=== PATIENT | male | born 1980 | race African-American/Black ===

== ENCOUNTER 2018-04-20 11:53 | Inpatient (IN) | payer BC ==
[~2018-04-20] VITALS: Ht 180.3 cm; Wt 123.7 kg
--- NOTE | ~2018-04-20 | PATH ---
[facility] [place] [address] [address] PATHOLOGY RPT PROCEDURE Name: MARKUS SALINAS Room #: 214-P ADM IN M.R.#: [id number] Admission: 04/20/18 Date of : 80 Discharge: Report #: [id number] Path Case #: [id number] [facility] Accession Number: [id number] . 01 Material submitted: . LEFT LOWER LOBE LUNG BIOPSY . 01 Clinical history: . Bibasilar infiltrates . 02 Diagnosis: Lung, left lower lobe, wedge biopsy: - Organizing pneumonia. - Hyaline membranes and acute lung injury. - Capillaritis. [facility]/05/02/2018 . 02 Comment: Examination shows the entire lung parenchyma effaced by an organizing pneumonia along with several hyaline membranes, consistent with acute lung injury. In addition, there is capillaritis present. The medium-sized vessels present in the biopsy tissue are not involved. The organizing pneumonia shows rare scattered poorly-formed epithelioid histiocyte collections compatible with a poorly-formed granuloma. Acid fast bacillus and Gomori methenamine silver stains performed on block A1 are negative for mycobacterial as well as fungal elements, respectively. CMV immunohistochemical stain is reactive in a few cells showing nucleomegaly suggestive of CMV etiology. It is noted the CMV PCR is negative. HSV1 immunohistochemical stain is nonreactive. . This case is sent to [facility] for expert pulmonary pathologist opinion. An addendum will be issued subsequent to receiving their report. . The case was co-reviewed with Dr. Jamie Jeong (H and E slides only). . The findings are discussed with Dr. Jovan Aiken at 10:45 a.m. on 05/02/18. (IUV:mml; 05/02/18) . . *This test was developed and its performance characteristics determined by [facility]. It has not been cleared or approved by the U.S. Food and Drug Administration. The FDA has determined that such clearance or approval is not necessary. This test is used for clinical purposes. It should not be regarded as investigational or for research. This laboratory is certified under the Clinical Laboratory Improvement Amendments of 1988 (CLIA) as qualified to perform high complexity clinical laboratory testing. . [address] [address] PATHOLOGY RPT PROCEDURE Name: MARKUS SALINAS Room #: 214-P ADM IN M.R.#: [id number] Admission: 04/20/18 Date of : 80 Discharge: Report #: [id number] Path Case #: [id number] Addendum: . This addendum is issued subsequent to receiving the expert opinion from the pulmonary pathologist at [place], [place]. Dr. Avery Smiley reviewed the case and his diagnosis reads as follows: . Lung, left lower lobe, wedge biopsy: - Acute and organizing diffuse alveolar damage (see comment). . . ADDENDUM COMMENT: . At low magnification, sections of the lung biopsy show diffuse alveolar septal thickening due to a combination of fibroblast proliferation, edema and alveolar lining cell hyperplasia. Scattered eosinophilic hyaline membranes are also present. This constellation of findings is diagnostic of DAD. No eoniophils are identified. I also do not think that there is any evidence of capillaritis, vasculitis, giant cells or granulomas. There are some hyperchromatic cells with irregularly shaped nuclei which represent megakaryocytes. I do not see any viral cytopathic effect. Special stains for organisms, including immunohistochemistry for *CMV and *HSV, GMS and AFB are all negative. . DAD is a pattern of acute lung injury associated with various etiologies, including infections (example: Pneumocystis), noxious inhalants, drugs, septicemia and various forms of shock. It may also occur in association with most connective tissue diseases. When idiopathic, it is known as acute interstitial pneumonia or Bam-Rich disease. Unfortunately, this tends to behave a rapidly progressive form of interstitial lung disease. Management is primarily supportive. It is not possible to completely exclude an eosinophilic lung disease at this point in time as the patient has been on steroids. If he ever had peripheral eosinophilia or eosinophils on a BAL, then this could represent a partially treated acute eosinophilic pneumonia. . Overall, Dr. Smiley's findings are in agreement with ours. (IUV:issa; 05/04/2018) . *This test was developed and its performance characteristics determined by [facility]. It has not been cleared or approved by the U.S. Food and Drug Administration. The FDA has determined that such clearance or approval is not necessary. This test is used for clinical purposes. It should not be regarded as investigational or for research. This laboratory is certified under the Clinical Laboratory Improvement Amendments of 1988 (CLIA) as qualified to perform high complexity clinical laboratory testing. . Professional services performed by [address] [address]. Technical services performed by [address], [address], [place] [address]. [facility] [address] [place] [address] PATHOLOGY RPT PROCEDURE Name: MARKUS SALINAS Room #: 214-P ADM IN M.R.#: [id number] Admission: 04/20/18 Date of : 80 Discharge: Report #: [id number] Path Case #: [id number] QMS/05/04/2018 Addendum Electronically Signed by Tabby Gutierrez MD, Pathologist . 02 Electronically signed: . Tabby Gutierrez MD, Pathologist NPI- [id number] . 01 Gross description: . The specimen is received in formalin, labeled "Markus Salinas, left lower lobe lung biopsy". Received is a segment of pink-gonsalez lung tissue with a stable margin of resection measuring 2.8 x 2.0 x 0.5 cm in greatest dimensions. The shira are removed of the new margin is inked black. Sectioning reveals pink-milian, spongy cut surfaces with no grossly distinct nodules or lesions. The specimen is submitted entirely in cassettes A1 through A3. (CAA; 04/28/2018) QAC/QAC . 02 Pathologist provided ICD-10: J84.89, J98.4 . 02 CPT . 862763, L31792, X12834, 668855, 556595 Performed at: [address], [place], [place] [id number] MD Chip Arcos MD Phone: [phone] Performed at: [address] [id number] MD Tabby Gutierrez MD Phone: [phone]
--- NOTE | ~2018-04-20 | P ---
[facility] [place] [address] [address] [place] [address] PROCEDURE REPORT Name: MARKUS KRUSE Room #: 426- ADM IN M.R.#: [id number] Admission: 04/20/18 Attend Phys: George Neumann MD Discharge: Date of : 80 Report #: [id number] THIS REPORT FOR: //name// CC: George Watson MD DATE OF SERVICE: 04/21/2018 PROCEDURE: Fiberoptic bronchoscopy with bronchial lavage in the right lower lobe. INDICATION: Pulmonary infiltrates, failing outpatient therapy. ASA classification, class 3. PROCEDURE NOTATION: After discussing risks, benefits of planned procedure with the patient, he desired to proceed. After obtaining informed consent, he was brought to laboratory helper 3, was placed on continuous cardiopulmonary monitoring and supplemental oxygen. He was then given 4% lidocaine nebulized to anesthetize the upper respiratory tract. Once accomplished, he received conscious sedation, a total of 6 mg of Versed and 25 mcg of fentanyl were titrated during the procedure. Once accomplished, bronchoscope was passed through an oral biteblock until vocal cords were visualized. Lidocaine 1% was instilled in the vocal cords to provide topical anesthesia. Bronchoscope was then passed in the trachea, 1% lidocaine was instilled in the tracheobronchial tree bilaterally to provide topical anesthesia. Once complete, airways were surveyed. FINDINGS: Mainstem, lobar, segmental and subsegmental bronchi were all explored. No significant anatomic variation or disease existed. Some mild bronchial edema was noted. No significant secretions were seen. Because of the persistent infiltrates, bronchoscope was wedged into the right lower lobe where bronchial lavage was performed. This was sent for microbiologic and cytologic tests. The patient did have some hypoxemia near the end of procedure, required nonrebreather mask, but otherwise tolerated it well. IMPRESSION: Persistent pulmonary infiltrates, failing outpatient therapy. PLAN: Await microbiologic and cytologic tests. We will send for cell count with differential. <ELECTRONICALLY SIGNED> By: Clay Taylor MD 04/22/182005 1047 1834 Clay Taylor MD /nt
--- NOTE | ~2018-04-20 | HC ---
[facility] [place] [address] CONSULTATION Name: MARKUS KRUSE Room #: [facility]- ADM IN M.R.#: [id number] Admission: 04/20/18 Attend Phys: George Neumann MD Discharge: Date of : 80 Report #: [id number] THIS REPORT FOR: //name// CC: George Cagle DATE OF SERVICE: 04/21/2018 REASON FOR CONSULTATION: I was asked to evaluate concerning bilateral pulmonary infiltrates. HISTORY OF PRESENT ILLNESS: The patient was a 38-year-old, 2 months ago developed the onset of headache, right-sided, temporal region, behind his right eye. Serologic workup noted elevated sedimentation rate. Placed on a 10-day course of prednisone and improved with resolution of his headache. However, following this, he started having some discomfort in his throat with more shortness of breath, nonproductive cough. Then developed a low-grade fever without chills or sweats. He has had some anorexia. He has arthralgias and myalgias. Generalized fatigue. Denies any visual changes, mucosal lesions, odynophagia or dysphagia. He has had no rash or adenopathy. He is obese and has noticed some weight loss over the last 2 months. No pleuritic chest pain. His shortness of breath has progressed to the point where he had short of breath just sitting up in bed or talking. No cardiac history, hypertension or palpitations. No nausea, vomiting, diarrhea, dysuria or frequency. No blood in the stool or in his urine. No back or flank pain. Although he has arthralgias, he has had no joint swelling. No syncopal episodes, mood swings. He has been under stress with his home life. Initial workup thought possibly temporal arteritis. Therefore, the prednisone. This, however, was only a short course with a relatively quick taper. He has seen ENT with no specific diagnosis. He has had a stress echo, which was unremarkable. He had pulmonary evaluation as outpatient where a CT scan showed bilateral pulmonary infiltrates both interstitial and alveolar, predominantly mid chest and base region. He has had no HIV risk factors. He reports no travel outside the [place]. He grew up in [place]. No woodland, animal or tick exposure. REVIEW OF SYSTEMS: Ten point review negative other than described above. ALLERGIES: None. MEDICATIONS: He was given amoxicillin last week with no improvement. He is off his corticosteroids. He was started on azithromycin, ceftriaxone through the Emergency Room. PAST MEDICAL HISTORY: Otherwise, unremarkable. [facility] [address] [place] [address] CONSULTATION Name: [facility] Room #: [facility] IN ..#: [id number] Admission: 04/20/18 Attend Phys: George Neumann MD Discharge: Date of : 80 Report #: [id number] FAMILY HISTORY: Hypertension, otherwise unremarkable. SOCIAL HISTORY: He is a nonsmoker, no significant alcohol intake. No HIV risk factors. 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 PHYSICAL EXAMINATION: VITAL SIGNS: Maximum temperature is 100.9, hemodynamically stable. He underwent a bronchoscopy today. He is back from this. GENERAL: He is alert and cooperative. No acute distress when sitting up in bed. Any movement in bed or long bouts of discussion, he becomes short of breath. He is obese. EYES: Pupils were reactive, 3 mm. Sclerae white. No conjunctivitis. Sinuses nontender. MOUTH: Without lesion. Oral mucositis. NECK: Supple. No thyromegaly or mass. No peripheral adenopathy. SKIN: Without lesion or rash. LUNGS: Coarse crackles heard posteriorly mid chest and below. No consolidation or rub. HEART: Regular, without murmur, gallop or rub. He was tachycardic. ABDOMEN: Soft, nontender, no hepatosplenomegaly or mass. GENITOURINARY: External genitalia unremarkable. Perianal: Unremarkable. EXTREMITIES: No peripheral edema. No clubbing or cyanosis. NEUROLOGIC: Nonfocal. Mood was normal. Mental status, normal. LABORATORY STUDIES: Sodium 138, potassium 4.2, creatinine 1.1, AST 96, ALT 218, bilirubin normal, alkaline phosphatase 138. Hemoglobin 13.6, white count 17.8, platelet count was 342,000, 90% segs, 6% lymphs. CRP 156, sedimentation rate 95, rheumatoid factor positive at 15. DAPHNE, ANCA, IgE levels pending. Bronchoscopy showed no endobronchial lesions. No purulent secretions. CT scan of the chest as noted above with interstitial and alveolar infiltrates, mostly in the mid and lower lung dupont. No increased adenopathy. IMPRESSION: A 38-year-old with progressive pulmonary infiltrates associated with marked elevated sedimentation rate, leukocytosis, hepatitis and hypoxia. Cause of his pulmonary infiltrates would include infectious etiology, community acquired. He was on a short course of corticosteroids, which would make him at some increased risk. However, I am suspecting that this process was ongoing at least in part at the time of his steroids. Autoimmune or connective tissue disorder, sarcoidosis also considered. Malignancy seems less likely given no peripheral adenopathy and no adenopathy in his chest. I am suspecting the hepatitis is also related. RECOMMENDATION: We will check serologic studies, images head and sinuses. Await microbiology reports from his bronchoscopy. Given the rapid progression [facility] [address] [place] [address] CONSULTATION Name: MARKUS KRUSE Room #: 424-P ADM IN M.R.#: [id number] Admission: 04/20/18 Attend Phys: George Neumann MD Discharge: Date of : 80 Report #: [id number] of this process, I would agree with Pulmonary Medicine that lung biopsy may be in order here. This does not appear to be a typical bacterial infection. <ELECTRONICALLY SIGNED> By: Abhay Aiken MD 04/24/18 1214 1336 2156 Abhay Aiken MD /nt
--- NOTE | ~2018-04-20 | EKG ---
[place] [address] [facility] [place] [address] ELECTROCARDIOGRAM REPORT Name: MARKUS KRUSE Room #: 170-1 ADM IN M.R.#: [id number] Admission: 04/20/18 Attend Phys: George Neumann MD Discharge: Date of : 80 Report #: [id number] THIS REPORT FOR: //name// [facility] ED Test Date: 2018-04-20 Test Time: 12:22:12 Pat Name: MARKUS KRUSE Department: Room: 170 Gender: M Subpoena Server: JENNA : 1980 Requested By: Shasha Whyte Order Number: [id number] MD: Sanjeev Myrick Measurements Intervals Butler Rate: 100 P: 42 ND: 139 QRS: 82 QRSD: 98 T: -8 QT: 324 QTc: 418 Interpretive Statements Sinus tachycardia Borderline T abnormalities, inferior leads Poor R wave progression No previous ECG available for comparison Electronically Signed On 04-20-2018 16:54:19 CDT by Sanjeev Myrick [email or web address] <ELECTRONICALLY SIGNED> By: Sanjeev Myrick MD, [facility] 04/20/18 1654 1222 21 Sanjeev Myrick MD, FACC /EPI
--- NOTE | ~2018-04-20 | HC ---
[facility] [place] [address] CONSULTATION Name: MARKUS KRUSE Room #: 214-P ADM IN M.R.#: [id number] Admission: 04/20/18 Attend Phys: George Neumann MD Discharge: Date of : 80 Report #: [id number] THIS REPORT FOR: //name// CC: George Cagle DATE OF SERVICE: 05/03/2018 HISTORY OF PRESENT ILLNESS: The patient is a 38-year-old -[place] male who had a month long history of headache, was diagnosed for temporal arteritis, placed on prednisone, developed increased shortness of breath and ended being admitted to [facility] and noted to have bibasilar infiltrates. He underwent a left VATS wedge resection with lower lobe biopsy. He has had problems with acute hypoxemic respiratory failure, has been placed on high-dose steroids, Infectious Disease is involved, on IV antibiotics. He was on BiPAP. His oxygen needs have decreased. We are seeing him in Rehabilitation Medicine consultation. PAST MEDICAL HISTORY: Includes the above. History of temporal arteritis. Otherwise, no history of pulmonary or autoimmune diseases. ALLERGIES: No known drug allergies. HABITS: Occasional cigar. No history of alcohol abuse. SOCIAL HISTORY: Lives in a house alone. No steps. He indicated he actually just sold the house and so his plan currently is to move into a hotel for a month or so. He does have an out of town family that can assist. He works for the [employer]. REVIEW OF SYSTEMS: Did not offer any current complaints of chest pain. Some shortness of breath with limited activities. No abdominal discomfort. No focal extremity pain complaints. PHYSICAL EXAMINATION: GENERAL: A 38-year-old, overweight, -[place]ian male, in no obvious distress. VITAL SIGNS: Last recorded temperature is 98.5, pulse 88, respirations 26, blood pressure 119/76. NEUROLOGIC: He is alert, pleasant, oriented. He is on nasal prong O2, currently at 2 liters. Facies are symmetric. He is a good historian. Functional range of motion of both upper extremities without obvious focal weakness. DTRs are trace to 1. Lower extremities functional range of motion, strength is grade 4+ to 5-/5. DTRs are trace to 1. No calf swelling. No distal lower extremity edema. He was able to sit to stand for me independently, took a couple of steps in the room. [facility] [address] [place] [address] CONSULTATION Name: [facility] Room #: 214-P [facility] IN M.R.#: [id number] Admission: 04/20/18 Attend Phys: George Neumann MD Discharge: Date of : 80 Report #: [id number] EXTREMITIES: He has been going back and forth to the bathroom and per nursing notes is up ad naveen. ASSESSMENT: A 38-year-old -[place]ian male with the following problem list: 1. Acute hypoxemic respiratory failure, improving. 2. Bibasilar infiltrates. 3. Pneumonitis. 4. Prior history of temporal arteritis. 5. Generalized debilitation and weakness. PLAN: It appears he is going to be too high level to warrant an acute in-hospital inpatient rehabilitation stay. He is already up ad naveen. Physical therapy and occupational therapy will be evaluating him. We would anticipate he will be able to return directly home as he further medically stabilizes. We will continue to follow along for now. Thank you for asking us to assist in this patient's care. <ELECTRONICALLY SIGNED> By: Abiel Dawson MD 05/05/18 1025 1127 0025 Abiel Dawson MD /[facility]
--- NOTE | ~2018-04-20 | 2DMMODE ---
[facility] [address] [place] [address] 2 D/M-MODE ECHOCARDIOGRAM Name: MARKUS KRUSE Room #: 357-P ADM IN M.R.#: [id number] Admission: 04/20/18 Attend Phys: George Neumann MD Discharge: Date of : 80 Date of Service: 04/26/18 1626 Report #: [id number] THIS REPORT FOR: //name// APPROVED REPORT Study performed: 04/26/2018 13:37:02 EXAM: Limited 2D, Doppler, and color-flow Echocardiogram Patient Location: Echo lab Room #: [facility] Status: routine BSA: 2.48 HR: 100 bpm BP: 160/103 mmHg Rhythm: Tachycardia Other Information Study Quality: Adequate Indications Acute respiratory failure. Limited follow-up echo for change in EF, right heart size and function and pulmonary HTN. (Complete done 04/11/18) 2D Dimensions RVDd: 40.05 mm Aortic Valve AoV Peak Don.: 1.65 m/s AO Peak Gr.: 10.83 mmHg Tricuspid Valve TR Peak Don.: 3.23 m/s RAP Estimate: 10.00 mmHg TR Peak Gr.: 41.85 mmHg PA Pressure: 52.00 mmHg Left Ventricle The left ventricle is normal size. Mild concentric left ventricular hypertrophy. Left ventricular systolic function is normal. LVEF is 60-65%. Right Ventricle The right ventricle is normal size. The right ventricular systolic function is normal. [facility] [address] [place] [address] 2 D/M-MODE ECHOCARDIOGRAM Name: MARKUS KRUSE Room #: 357-P ADM IN M.R.#: [id number] Admission: 04/20/18 Attend Phys: George Neumann MD Discharge: Date of : 80 Date of Service: 04/26/18 1626 Report #: [id number] The left atrium size is normal. The right atrium size is normal. Aortic Valve The aortic valve is normal in structure. No aortic regurgitation is present. There is no aortic valvular stenosis. Mitral Valve The mitral valve is normal in structure. Trace mitral regurgitation. Tricuspid Valve The tricuspid valve is normal in structure. Moderate tricuspid regurgitation. Estimated PAP is 50-55mmHg. Great Vessels IVC is dilated and collapses around 50% with inspiration. Pericardium There is no pericardial effusion. <Conclusion> The left ventricle is normal size. LVEF is 60-65%. The right ventricle is normal size. The aortic valve is normal in structure. The mitral valve is normal in structure. Trace mitral regurgitation. The tricuspid valve is normal in structure. Moderate tricuspid regurgitation. Estimated PAP is 50-55mmHg. <ELECTRONICALLY SIGNED> By: Jarek Brown MD 04/26/18 1626 25 25 Jarek Brown MD /INF
--- NOTE | ~2018-04-20 | PATH ---
[facility] [address] [place] [address] PATHOLOGY RPT PROCEDURE Name: MARKUS KRUSE Room #: 424-P ADM IN M.R.#: [id number] Admission: 04/20/18 Date of : 80 Discharge: Report #: [id number] Path Case #: [id number] Note [facility] Accession Number: [id number] TESTS RESULT FLAG UNITS REF RANGE LAB Clinician Provided Cytology Information No. of containers..01 Other (Miscellaneous) Source: BAL- RLL DIAGNOSIS: 02 BAL- RLL NEGATIVE FOR MALIGNANT CELLS. NORMAL BRONCHIAL CELLS AND MACROPHAGES ARE PRESENT. SPECIMEN CONSISTS OF HEMOSIDERIN-LADEN MACROPHAGES AND BLOOD. Signed out by: Tabby Gutierrez MD, Pathologist NPI- [id number] Performed by: Zee Cabral, [employer] ([facility]) Gross description: 01 12ML, COLORLESS, CLEAR /LCS FLAG LEGEND: L-Low Normal,H-High Normal,LL-Alert Low,HH-Alert High <-Panic Low,>-Panic High,A-Abnormal,AA-Critical Abnormal Performed at: [address] [place] [address] Chip Arcos MD, [address] [address] Tabby Gutierrez MD, Performed at: [address], [place], [place] [id number] MD Chip Arcos MD Phone: [phone]
[2018-04-20 11:55] VITALS: BP 142/89
[2018-04-20] MEDS ORDERED: AMOXICILLIN 50500 MG PO (12:21)
[2018-04-20] MEDS ORDERED: TYLENOL325 MG PO (12:27)
[2018-04-20 12:40] LABS: CREATININE 1.4 mg/dL (0.7-1.3); HEMATOCRIT 43.9 % (42.0-52.0); HEMOGLOBIN 15.2 gm/dL (14.0-18.0); MCH 31.5 pg (26.0-34.0); MCHC 34.6 g/dL (28.0-37.0); MCV 91.2 fL (80.0-100.0); PLATELET COUNT 367 thou/uL (150-400); POTASSIUM 3.9 mmol/L (3.5-5.1); RBC 4.82 mil/uL (4.50-6.00); RDW 13.6 % (10.5-14.5); WBC 19.4 thou/uL (4.0-11.0)
[2018-04-20 16:13] LABS: ALBUMIN 2.8 g/dL (3.4-5.0); DIRECT BILIRUBIN 0.2 mg/dL (<0.1-0.3); TOTAL BILIRUBIN 0.5 mg/dL (<0.1-1.0); TOTAL PROTEIN 8.3 g/dL (6.4-8.2)
[2018-04-20 16:45] LABS: ABSOLUTE NEUTROPHILS 17.5 thou/uL (1.4-8.2)
[2018-04-20 16:46] LABS: LARGE PLATELETS MANY
[2018-04-20 19:44] VITALS: BP 136/88
[2018-04-20 21:00] VITALS: BP 129/84
[2018-04-20 23:49] VITALS: BP 136/85
[2018-04-21 04:31] VITALS: BP 136/84
[2018-04-21 06:07] LABS: HEMOGLOBIN 13.6 gm/dL (14.0-18.0); MCH 31.1 pg (26.0-34.0); MCHC 33.9 g/dL (28.0-37.0); MCV 91.8 fL (80.0-100.0); RBC 4.36 mil/uL (4.50-6.00); RDW 13.4 % (10.5-14.5); WBC 17.8 thou/uL (4.0-11.0)
[2018-04-21 06:14] LABS: CALCIUM 8.8 mg/dL (8.5-10.1); CREATININE 1.1 mg/dL (0.7-1.3); POTASSIUM 4.2 mmol/L (3.5-5.1)
[2018-04-21 07:49] VITALS: BP 134/7
[2018-04-21 09:58] VITALS: BP 134/7
[2018-04-21 11:28] VITALS: BP 136/78
[2018-04-21 11:55] LABS: CLARITY HAZY; COLOR COLORLESS; SOURCE BRONCHIAL LAVAGE; TOTAL VOLUME 15 mL
[2018-04-21 15:12] LABS: BF NUCLEATED CELLS 213; BF RBC 1780
[2018-04-21 15:56] LABS: BF MACROPHAGE 6
[2018-04-21 15:58] LABS: BF NEUTROPHILS 61
[2018-04-21 16:00] VITALS: BP 116/64
[2018-04-21 21:58] VITALS: BP 124/63
[2018-04-22 04:05] VITALS: BP 133/79
[2018-04-22 06:21] LABS: URINE BILIRUBIN NEGATIVE (Negative); URINE BLOOD NEGATIVE (Negative); URINE CLARITY CLEAR; URINE COLOR YELLOW; URINE GLUCOSE-RANDOM* NEGATIVE (Negative); URINE KETONES NEGATIVE (Negative); URINE LEUKOCYTES NEGATIVE (Negative); URINE NITRITE NEGATIVE (Negative); URINE PROTEIN (DIPSTICK) TRACE (Negative); URINE SPECIFIC GRAVITY 1.025 (1.005-1.035); URINE UROBILINOGEN 0.2 E.U./dl (0.2-1.0)
[2018-04-22 06:34] LABS: BE(vivo) -3.4 mmol/L (-2 to +3); HCO3 19.5 mmol/L (22.0-26.0); PCO2 29.9 mmHg (35.0-45.0); PO2 69.9 mmHg (80.0-100.0); pH 7.433 (7.360-7.450); sO2 94.8 % (92.0-98.0)
[2018-04-22 07:14] VITALS: BP 122/98
[2018-04-22 15:09] LABS: COMPLEMENT-C3 203 mg/dL (82-167); COMPLEMENT-C4 44 mg/dL (14-44)
[2018-04-22 16:13] VITALS: BP 110/71
[2018-04-22 20:15] VITALS: BP 131/75
[2018-04-23 04:29] VITALS: BP 135/86
[2018-04-23 05:30] LABS: HEMATOCRIT 39.6 % (42.0-52.0); HEMOGLOBIN 13.4 gm/dL (14.0-18.0); MCHC 33.8 g/dL (28.0-37.0); MCV 91.7 fL (80.0-100.0); PLATELET COUNT 372 thou/uL (150-400); RBC 4.32 mil/uL (4.50-6.00); RDW 13.2 % (10.5-14.5); WBC 21.4 thou/uL (4.0-11.0)
[2018-04-23 05:44] LABS: CALCIUM 9.2 mg/dL (8.5-10.1); CREATININE 0.9 mg/dL (0.7-1.3); POTASSIUM 4.2 mmol/L (3.5-5.1)
[2018-04-23 06:46] LABS: ABSOLUTE NEUTROPHILS 19.9 thou/uL (1.4-8.2); LARGE PLATELETS OCCASIONAL; METAMYELOCYTES 1 %
[2018-04-23 07:10] VITALS: BP 109/70
[2018-04-23 16:00] VITALS: BP 135/81
[2018-04-23 19:32] VITALS: BP 149/80
[2018-04-24 04:41] VITALS: BP 133/81
[2018-04-24 07:29] VITALS: BP 136/86
[2018-04-24 13:08] LABS: HIV ANTIBODY Non Reactive (Non Reactive)
[2018-04-24 19:07] LABS: ANA INTERPRETATION Negative (())
[2018-04-24 20:00] VITALS: BP 148/90
[2018-04-24 20:09] LABS: BE(vivo) -1.3 mmol/L (-2 to +3); HCO3 21.7 mmol/L (22.0-26.0); PCO2 31.9 mmHg (35.0-45.0); pH 7.451 (7.360-7.450)
[2018-04-24 20:10] LABS: PO2 54.3 mmHg (80.0-100.0)
[2018-04-24 23:06] LABS: HEPATITIS B SURFACE AG Negative (Negative); HEPATITIS C VIRUS AB <0.1 (0.0-0.9)
[2018-04-24 23:26] LABS: BE(vivo) -1.5 mmol/L (-2 to +3); PCO2 33.6 mmHg (35.0-45.0); PO2 231.1 mmHg (80.0-100.0); pH 7.434 (7.360-7.450); sO2 99.5 % (92.0-98.0)
[2018-04-24 23:49] VITALS: BP 136/91
[2018-04-25 02:10] LABS: ANGIOTENSIN CONVERTNG ENZ 26 U/L (14-82)
[2018-04-25 04:16] VITALS: BP 138/90
[2018-04-25 07:41] VITALS: BP 127/79
[2018-04-25 11:47] VITALS: BP 144/82
[2018-04-25 16:41] VITALS: BP 156/94
[2018-04-25 18:10] LABS: HISTOPLASMA MYCELIAL-ID Negative (Negative)
[2018-04-25 19:17] VITALS: BP 133/86
[2018-04-25 22:15] LABS: HISTOPLASMA MYCELIAL-CF Negative (Neg:<1:2)
[2018-04-26 00:10] VITALS: BP 122/80
[2018-04-26 04:28] VITALS: BP 136/87
[2018-04-26 07:08] LABS: HEMATOCRIT 42.9 % (42.0-52.0); HEMOGLOBIN 14.2 gm/dL (14.0-18.0); MCH 30.5 pg (26.0-34.0); MCV 92.5 fL (80.0-100.0); PLATELET COUNT 460 thou/uL (150-400); RBC 4.64 mil/uL (4.50-6.00); RDW 13.4 % (10.5-14.5)
[2018-04-26 07:24] LABS: CALCIUM 9.3 mg/dL (8.5-10.1); CREATININE 1.1 mg/dL (0.7-1.3); POTASSIUM 4.3 mmol/L (3.5-5.1)
[2018-04-26 07:30] VITALS: BP 160/103
[2018-04-26 08:53] LABS: ABSOLUTE NEUTROPHILS 23.2 thou/uL (1.4-8.2); PLATELET ESTIMATE INCREASED
[2018-04-26 16:33] VITALS: BP 132/79
[2018-04-26 17:10] LABS: APTT 24.6 Seconds (24.5-32.8); INR 1.1; PROTIME 10.9 Seconds (9.3-11.4)
[2018-04-26 19:07] VITALS: BP 149/96
[2018-04-27 00:25] LABS: ADENOVIRUS Negative (Negative); INFLUENZA A Negative (Negative); INFLUENZA B Negative (Negative); METAPNEUMOVIRUS Negative (Negative); PARAINFLUENZA 1 Negative (Negative); PARAINFLUENZA 2 Negative (Negative); PARAINFLUENZA 3 Negative (Negative); RHINOVIRUS Negative (Negative); RSV A Negative (Negative); RSV B Negative (Negative)
[2018-04-27 04:00] VITALS: BP 109/68
[2018-04-27 07:07] VITALS: BP 119/70
[2018-04-27 11:27] VITALS: BP 134/85
[2018-04-27 15:51] VITALS: BP 106/70
[2018-04-27 21:00] VITALS: BP 112/74
[2018-04-27 22:00] VITALS: BP 108/64
[2018-04-28] VITALS (17 sets, daily range): BP systolic 99–142; BP diastolic 58–85
[2018-04-28 05:23] LABS: ALBUMIN 2.3 g/dL (3.4-5.0); CALCIUM 8.4 mg/dL (8.5-10.1); CREATININE 1.3 mg/dL (0.7-1.3); POTASSIUM 4.4 mmol/L (3.5-5.1); TOTAL BILIRUBIN 0.4 mg/dL (<0.1-1.0); TOTAL PROTEIN 6.7 g/dL (6.4-8.2)
[2018-04-28 05:27] LABS: HEMOGLOBIN 14.3 gm/dL (14.0-18.0); MCH 30.9 pg (26.0-34.0); MCHC 33.3 g/dL (28.0-37.0); MCV 92.9 fL (80.0-100.0); PLATELET COUNT 492 thou/uL (150-400); RBC 4.63 mil/uL (4.50-6.00); RDW 13.5 % (10.5-14.5); WBC 28.9 thou/uL (4.0-11.0)
[2018-04-28 08:49] LABS: ABSOLUTE NEUTROPHILS 26.3 thou/uL (1.4-8.2); PLATELET ESTIMATE INCREASED
[2018-04-29 03:34] VITALS: BP 132/67
[2018-04-29 07:50] VITALS: BP 127/75
[2018-04-29 11:55] VITALS: BP 141/83
[2018-04-29 16:00] VITALS: BP 124/79
[2018-04-29 20:13] VITALS: BP 138/78
[2018-04-30 02:47] LABS: HEMATOCRIT 42.8 % (42.0-52.0); HEMOGLOBIN 14.3 gm/dL (14.0-18.0); MCH 30.7 pg (26.0-34.0); MCHC 33.3 g/dL (28.0-37.0); MCV 92.3 fL (80.0-100.0); RBC 4.64 mil/uL (4.50-6.00); RDW 13.1 % (10.5-14.5)
[2018-04-30 02:56] LABS: CALCIUM 8.7 mg/dL (8.5-10.1); POTASSIUM 4.6 mmol/L (3.5-5.1)
[2018-04-30 05:09] VITALS: BP 127/77
[2018-04-30 08:50] VITALS: BP 141/82
[2018-04-30 12:19] VITALS: BP 133/78
[2018-04-30 16:13] VITALS: BP 129/77
[2018-04-30 20:38] VITALS: BP 121/81
[2018-05-01 05:31] VITALS: BP 126/87
[2018-05-01 08:04] VITALS: BP 116/75
[2018-05-01 11:21] VITALS: BP 126/70
[2018-05-01 15:44] VITALS: BP 117/73
[2018-05-01 20:27] VITALS: BP 125/52
[2018-05-02 01:06] LABS: ADENOVIRUS Negative (Negative); INFLUENZA A Negative (Negative); INFLUENZA B Negative (Negative); METAPNEUMOVIRUS Negative (Negative); PARAINFLUENZA 1 Negative (Negative); PARAINFLUENZA 2 Negative (Negative); PARAINFLUENZA 3 Negative (Negative); RHINOVIRUS Negative (Negative); RSV A Negative (Negative); RSV B Negative (Negative)
[2018-05-02 03:53] VITALS: BP 131/70
[2018-05-02 08:13] VITALS: BP 114/73
[2018-05-02 11:41] VITALS: BP 130/81
[2018-05-02 16:41] VITALS: BP 129/72
[2018-05-02 19:48] VITALS: BP 123/73
[2018-05-03 04:20] VITALS: BP 140/81
[2018-05-03 08:03] VITALS: BP 119/76
[2018-05-03 11:48] VITALS: BP 127/78
[2018-05-03 16:16] VITALS: BP 130/83
[2018-05-03 20:00] VITALS: BP 114/72; BP 145/89
[2018-05-04 04:00] VITALS: BP 120/68
[2018-05-04 08:15] VITALS: BP 122/68
[2018-05-04 12:20] VITALS: BP 127/84
[2018-05-04 16:34] VITALS: BP 149/86
[2018-05-04 19:38] VITALS: BP 130/85
[2018-05-05 03:52] VITALS: BP 130/77
[2018-05-05 08:00] VITALS: BP 152/102
[2018-05-05 11:33] VITALS: BP 143/76
[2018-05-05 16:53] VITALS: BP 129/75
[2018-05-05 19:46] VITALS: BP 131/87
[2018-05-06 05:09] VITALS: BP 140/86
[2018-05-06 05:29] LABS: HEMATOCRIT 47.2 % (42.0-52.0); MCHC 33.9 g/dL (28.0-37.0); MCV 91.3 fL (80.0-100.0); RBC 5.17 mil/uL (4.50-6.00); RDW 13.6 % (10.5-14.5); WBC 36.6 thou/uL (4.0-11.0)
[2018-05-06 05:37] LABS: CREATININE 1.1 mg/dL (0.7-1.3); POTASSIUM 4.6 mmol/L (3.5-5.1)
[2018-05-06 08:32] VITALS: BP 135/84
[2018-05-06 11:54] VITALS: BP 132/74
[2018-05-06 12:26] LABS: HEMATOCRIT 49.4 % (42.0-52.0); MCH 31.3 pg (26.0-34.0); MCHC 34.5 g/dL (28.0-37.0); MCV 90.7 fL (80.0-100.0); RBC 5.44 mil/uL (4.50-6.00); WBC 38.1 thou/uL (4.0-11.0)
[2018-05-06 12:38] LABS: INR 1.1; PROTIME 11.3 Seconds (9.3-11.4)
[2018-05-06 13:24] LABS: APTT 23.8 Seconds (24.5-32.8)
[2018-05-06 16:30] VITALS: BP 134/86
== END 2018-05-06 17:00 | disposition short-term general hospital (02) | DRG 163 ==
LOC: ER 11:53 → EROBS 12:55 → 4E 12:55 → ICU 14:12 → EROBS 15:15 → 4E 20:14 → 3W 04-24 21:48 → TBA 04-27 12:50 → ICU 04-27 15:48 → 2N 04-28 16:34
PROVIDERS: Hospitalist; Internal Medicine; Internal Medicine Pulmonary Disease; Nurse Practitioner Family; Specialist; Student in an Organized Health Care Education/Training Program; Thoracic Surgery (Cardiothoracic Vascular Surgery)
PROC: 0B9F8ZX Drainage of Right Lower Lung Lobe, Via Natural or Artificial Opening Endoscopic, Diagnostic (ICD-10-PCS; principal; 2018-04-21)
PROC: 5A09357 Assistance with Respiratory Ventilation, Less than 24 Consecutive Hours, Continuous Positive Airway Pressure (ICD-10-PCS; 2018-04-25)
PROC: 5A09357 Assistance with Respiratory Ventilation, Less than 24 Consecutive Hours, Continuous Positive Airway Pressure (ICD-10-PCS; 2018-04-26)
PROC: 0BBJ4ZZ Excision of Left Lower Lung Lobe, Percutaneous Endoscopic Approach (ICD-10-PCS; 2018-04-27)
PROC: 5A09357 Assistance with Respiratory Ventilation, Less than 24 Consecutive Hours, Continuous Positive Airway Pressure (ICD-10-PCS; 2018-04-27)
PROC: 5A09357 Assistance with Respiratory Ventilation, Less than 24 Consecutive Hours, Continuous Positive Airway Pressure (ICD-10-PCS; 2018-05-01)
DX: J96.01 Acute respiratory failure with hypoxia (principal); J18.9 Pneumonia, unspecified organism; K75.9 Inflammatory liver disease, unspecified; J84.89 Other specified interstitial pulmonary diseases; K21.9 Gastro-esophageal reflux disease without esophagitis; R51 Headache; T38.0X5A Adverse effect of glucocorticoids and synthetic analogues, initial encounter; B39.9 Histoplasmosis, unspecified; Y92.89 Other specified places as the place of occurrence of the external cause; Z99.81 Dependence on supplemental oxygen; Z79.899 Other long term (current) drug therapy
CPT/HCPCS: 10183; 10194; 10196; 10879; 47405; 50010; 50101; 50249; 50386; 50417; 50455; 50497; 50558; 50739; 50740; 52265; 53312; 54118; 56462; 56524; 56525; 56526; 56528; 62110; 62900; 65105; 70005